=== PATIENT | female | born 1995 | race Hispanic/Latino ===

== ENCOUNTER 2025-02-04 05:26 | Emergency (ER) | payer OTHER, SELFPAY ==
[2025-02-04 05:39] VITALS: BP 122/80
[2025-02-04 05:43] VITALS: BMI 41.5
--- NOTE | 2025-02-04 06:23 | ED.GENMED ---
History of Present Illness
General
Chief Complaint: Headache
Source: patient
Time Seen by Provider: 02/04/25 06:05
History of Present Illness
History of Present Illness:
29-year-old female complaining of bifrontal headache with nausea. No other neurologic symptoms. No double vision photophobia fever rash. Long history of migraines for years. Typically gets them about once a month. Usually takes Imitrex with
resolution. Patient is 14 weeks and did not take Imitrex for this reason. She last took Tylenol yesterday
Past History
Past History
ED Past Medical History: Other (Migraine)
ED Past Surgical History: and Other ([place] teeth)
Review of Systems
Review of Systems
All Other Systems: Not applicable
Phy Exam
Physical Exam
Physical Exam:
GENERAL: Alert and oriented in no apparent distress
EYE: Orbits normal. Discharge. Extraocular muscles intact
NECK: Supple, no significant adenopathy.
CARDIAC: Regular rate and rhythm without any obvious murmurs.
LUNGS: Clear breath sounds,normal
ABDOMEN: Soft, without focal tenderness or distention
NEUROLOGICAL: Alert and oriented , grossly non-focal. Speech normal. [id number] normal. Motor Expert normal.
SKIN: Warm and dry, no rash or lesion, no discoloration, skin intact.
MUSCULOSKELETAL: No edema,no deformity.Good color
PSYCH: Normal and appropriate interaction.
Course
Orders/Labs/Results
Orders:
Orders
02/04/25 06:15
IV Insert/Care/Rem.- Treatment PRN
0.9% Sodium Chloride 1000 ml [Nss] 1,000 ml IV BOLUS
02/04/25 06:27
Complete Blood Count/With Diff Urgent
Comprehensive Metabolic Panel Urgent
02/04/25 06:28
Urinalysis Reflex To Culture Urgent
Date Specimen was Collected: 02/04/25
Time Specimen was Collected: 06:27
Urine Microscopic Reflex Cult Urgent
Urine Culture Urgent
OCTAVIA Source: U
Specimen Description:
Date Specimen was Collected: 02/04/25
Time Specimen was Collected:
Acetaminophen 1000MG/100Ml [Ofirmev] 1,000 mg in 100 ml IV ONCE
Acetaminophen IV Indication:: ED Narcotic Naive Pt-ONCE
Diphenhydramine [Benadryl] 25 mg IV NOW STA
Metoclopramide [Reglan] 10 mg IV NOW STA
Abnormal Lab Results
02/04/25 02/04/25
06:28
RBC 4.07 L 10^6/uL
(4.20-5.40)
Hgb 11.9 L g/dL
(12.0-16.0)
Hct 34.7 L %
(37.0-47.0)
Abs Immat Gran (auto) 0.1 H 10^3/uL
(0-0.05)
Immature Gran % 0.7 H %
(0-0.5)
Chloride 110 H mmol/L
(98-107)
Creatinine 0.5 L mg/dL
(0.6-1.0)
Glucose 106 H mg/dl
(70-99)
Leukocyte Esterase Rfl 2+ A
(Negative)
Urine WBC (Reflex) 11-15 A /HPF
(0-5)
Urine Bacteria (Reflex) Moderate A
(Negative)
02/04/25 06:27
02/04/25 06:27
Vital Signs
Initial and Last Documented VS:
Initial Vital Signs
Temp Pulse Resp BP Pulse Ox
98.2 F 87 20 122/80 99
02/04/25 05:39 02/04/25 05:39 02/04/25 05:39 02/04/25 05:39 02/04/25 05:39
Last Documented Vital Signs
Temp Pulse Resp BP Pulse Ox
98.2 F 73 16 99/62 98
02/04/25 05:39 02/04/25 07:54 02/04/25 07:54 02/04/25 08:05 02/04/25 07:54
MDM/Problems Addressed
Differential Diagnosis Includes:
29-year-old female bifrontal headache. Consistent with her migraine. Feels like her migraine. Long history of migraines. Only difference from her typical migraine is time course as this is lasted longer. However she would normally have taken
Imitrex. Because of her she was reluctant. She denies visual issues neurologic issues or other complaints. Clinically and based on history this is migraine. Do not feel this warrants radiologic testing. She is 14 weeks . Do
not feel this is a preeclamptic issue. Will check labs and urine however. Reviewed with [facility] as far as management. Will give Reglan Benadryl and Tylenol.
*Pulse Oximetry
SaO2: 98
Oxygen Mode of Delivery: Room air
Patient hypoxic: no
*Critical Care Note
Total Time (30-74mins, 75-104mins- exclusive of procedures): Not Applicable
Update Note
Update Note:
0740... Patient doing well. Much improved. Labs stable. No protein in the urine. Contaminated urine but no UTI symptoms. Discharged to follow-up.
ED Attending Note
-
Portions of this chart may have been created with voice recognition software.� Occasional wrong word or��sound alike� substitutions may have occurred due to the inherent limitations of voice recognition software.
Discharge Plan
Departure
Patient Disposition: Home (Routine Discharge)
Date of Disposition: 02/04/25
Time of Disposition: 07:38
Patient with high blood pressure during this ER visit?: Yes
Discharge Problem:
Headache, 14-week
Instructions: Headache, Adult (DC), BLOOD PRESSURE
Prescriptions:
No Action
1 tab PO DAILY
Referrals:
UNKNOWN - PT DOES,NOT KNOW [Family Provider]
Activity Restrictions/Additional Instructions:
Follow-up with your primary physician and [facility]
Tylenol would be the safest for the headache
Return with any change in headache vomiting fever neurologic symptoms or any other concerning symptoms
Interventions
Interventions:
*Risk Screen - Suicide Last Done: 02/04/25 05:39
*General Assessment Last Done: 02/04/25 05:39
*Neglect/Abuse Screening Last Done: 02/04/25 05:39
*ED COVID-19 Vaccine History Last Done: 02/04/25 05:39
*Nursing Disposition Last Done: 02/04/25 08:30
ED- Neurological Assessment Last Done: 02/04/25 07:53
Discharge Date and Time
Discharge Date/Time: 02/04/25 08:30
Print Language: CAMEROONIAN
[2025-02-04] MEDS: BENADRYL 25 MG IV (06:37)
[2025-02-04] MEDS: NSS 1000 IV (06:37)
[2025-02-04] MEDS: REGLAN 10 MG IV (06:38)
[2025-02-04] MEDS: OFIRMEV 100 IV (06:44)
[2025-02-04 06:45] LABS: % Basophils 0.3 % (0-2); % Eosinophils 1.1 % (0-6); % Immature Granulocytes 0.7 % (0-0.5); % Lymphocytes 28.5 % (20.5-51.1); % Monocytes 5.2 % (1.7-9.3); % Neutrophils 64.2 % (42.2-75.2); Absolute Eosinophils 0.1 10^3/uL (0-0.7); Absolute Immature Granulocytes 0.1 10^3/uL (0-0.05); Absolute Lymphocytes 2.1 10^3/uL (1.2-3.4); Absolute Monocytes 0.4 10^3/uL (0.1-0.6); Absolute Neutrophils 4.7 10^3/uL (1.4-6.5); Hematocrit 34.7 % (37.0-47.0); Hemoglobin 11.9 g/dL (12.0-16.0); Mean Corp Hgb Conc. 34.3 g/dL (33.0-37.0); Mean Corpuscular Hgb 29.2 pg (27.0-31.0); Mean Corpuscular Volume 85.3 fL (81.0-99.0); Mean Platelet Volume 9.2 fL (7.4-10.4); Nucleated Red Blood Cells % 0 %; Platelet Count 210 10^3/uL (130-400); Red Blood Cell Count 4.07 10^6/uL (4.20-5.40); Red Cell Dist. Width 13.7 % (11.5-14.5); White Blood Cell Count 7.3 10^3/uL (4.8-10.8)
[2025-02-04 06:47] LABS: Urine Albumin Negative (Neg - Trace); Urine Bilirubin Negative (Negative); Urine Character Clear (Clear); Urine Color Yellow; Urine Glucose Negative (Negative); Urine Ketone Negative (Negative); Urine Leukocyte 2+ (Negative); Urine Nitrite Negative (Negative); Urine Occult Blood Negative (Negative); Urine Urobilinogen Negative (Neg - 1+)
[2025-02-04 06:55] LABS: Urine Squamous Cell >30 /LPF (Few)
[2025-02-04 06:56] LABS: Urine Bacteria Moderate (Negative); Urine Red Blood Cell None Seen /HPF (0-2)
[2025-02-04 07:10] LABS: ALT (SGPT) 16 U/L (0-35); AST (SGOT) 16 U/L (14-36); Albumin 3.5 g/dl (3.5-5.0); Alkaline Phosphatase 72 U/L (38-126); Blood Urea Nitrogen 9 mg/dl (7-17); Calcium 9.1 mg/dl (8.4-10.2); Carbon Dioxide 22 mmol/L (22-30); Chloride 110 mmol/L (98-107); Estimated Creatinine Clearance > 125 ml/min; Glucose 106 mg/dl (70-99); Potassium 3.9 mmol/L (3.5-5.1); Sodium 139 mmol/L (135-145); Total Bilirubin 0.4 mg/dl (0.2-1.3); Total Protein 6.5 g/dl (6.3-8.2); eGFR > 60.00
[2025-02-04 08:05] VITALS: BP 99/62
== END 2025-02-04 08:30 | disposition home or self-care (01) ==
LOC: EMR 05:26
PROVIDERS: EMERGENCY PHYSICIAN Emergency Medicine
DX: O99.352 Diseases of the nervous system complicating pregnancy, second trimester (principal); G43.909 Migraine, unspecified, not intractable, without status migrainosus; Z3A.14 14 weeks gestation of pregnancy
CPT/HCPCS: 96374; 96375; 99284; 80053; 81003; 81015; 85025; 87086

== ENCOUNTER 2025-03-06 22:10 | Emergency (ER) | payer OTHER, SELFPAY ==
[2025-03-06 22:18] VITALS: BP 118/88
--- NOTE | 2025-03-06 22:56 | ED.GENMED ---
History of Present Illness
General
Chief Complaint: Chest Pain
Source: patient
Time Seen by Provider: 03/06/25 22:48
History of Present Illness
History of Present Illness:
29-year-old female presents to the emergency room complaining of chest pain. Patient states she began having chest pain few hours ago while she was sitting. Pain radiates to her back. She states she does feel bit short of breath. Patient is 19
weeks . Discomfort also associated with some nausea and vomiting. No fever or chills. Patient denies any recent travel.
Past History
Past History
ED Past Medical History: Other (Migraine)
ED Past Surgical History: and Other ([place] teeth)
Phy Exam
Physical Exam
Physical Exam:
General: Awake, Alert, Oriented X3. No acute distress.
Vitals: unremarkable
Head: Atraumatic
Eyes: Pupils equal, EOMI
Throat: Airway intact, no exudates
Neck: Trachea midline
Lungs: Clear and equal b/l
Heart: Regular rate, no murmurs
Abd: Soft, Nontender, No pulsatile mass
Neuro: Nonfocal
Skin: Warm, dry, no rash
Extremities: pulses equal b/l, no edema
Scores
Heart Score for Chest Pain Patients
STEMI patient?: Not applicable
Course
Orders/Labs/Results
Orders:
Orders
03/06/25 22:17
Electrocardiogram (*1) Urgent
Reason for Study: Chest Pain
EKG- Treatment ONCE
03/06/25 22:55
Cardiac Monitoring- Treatment ONCE
Mag Hydrox/Al Hydrox/Simeth [Maalox] 30 ml Phenobarb/Hyoscy/Atropine/Scop [] 10 ml Viscous Lidocaine 2% [Xylocaine Viscous Cup] 10 ml PO NOW
03/06/25 23:01
Mag Hydrox/Al Hydrox/Simeth [Maalox] 30 ml .ROUTE .STK-MED ONE
Phenobarb/Hyoscy/Atropine/Scop [] 10 ml .ROUTE .STK-MED ONE
03/06/25 23:02
Viscous Lidocaine 2% [Xylocaine Viscous Cup] 15 ml .ROUTE .STK-MED ONE
03/06/25 23:12
Complete Blood Count/With Diff Urgent
Comprehensive Metabolic Panel Urgent
D-Dimer Urgent
Magnesium Urgent
Troponin I Urgent
Abnormal Lab Results
03/06/25
23:12
RBC 3.71 L 10^6/uL
(4.20-5.40)
Hgb 10.9 L g/dL
(12.0-16.0)
Hct 31.8 L %
(37.0-47.0)
Abs Immat Gran (auto) 0.1 H 10^3/uL
(0-0.05)
Absolute Neuts (auto) 6.7 H 10^3/uL
(1.4-6.5)
Immature Gran % 0.6 H %
(0-0.5)
Creatinine 0.4 L mg/dL
(0.6-1.0)
Glucose 100 H mg/dl
(70-99)
03/06/25 23:12
03/06/25 23:12
Vital Signs
Initial and Last Documented VS:
Initial Vital Signs
Temp Pulse Resp BP Pulse Ox
97.4 F 83 16 118/88 99
03/06/25 22:18 03/06/25 22:18 03/06/25 22:18 03/06/25 22:18 03/06/25 22:18
Last Documented Vital Signs
Temp Pulse Resp BP Pulse Ox
97.4 F 83 16 118/88 99
03/06/25 22:18 03/06/25 22:18 03/06/25 22:18 03/06/25 22:18 03/06/25 22:58
MDM/Problems Addressed
Differential Diagnosis Includes:
PE, GERD, acute coronary syndrome, esophageal spasm, cholecystitis
MDM/Problems Addressed:
Patient presents with chest pain that rating to her back. Vital signs are normal. She is not particular short of breath. D-dimer is normal. EKG shows no acute ischemic changes and is not tachycardic. Patient feels better after GI cocktail. She
has no tenderness to palpation in the right upper quadrant or epigastrium. My suspicion for acute coronary syndrome is low given her age, normal EKG and normal troponin. A normal D-dimer I think is sufficient to rule out PE as she is not
tachycardic, is not having a pleuritic nature to her pain and is not feeling short of breath. I think most likely diagnosis is GERD. She felt better after GI cocktail. Recommend follow-up with her primary care provider as an outpatient. Return
for any concerns.
*Pulse Oximetry
SaO2: 99
Oxygen Mode of Delivery: Room air
Patient hypoxic: no
*EKG
Interpreted by ED Provider?: Yes
Heart Rate: 83
Rate: normal
Rhythm: sinus
[place]: normal axis
Interval: normal interval
QRS Pattern: normal QRS
Ischemia: no ischemia
*Instructor Bridge Interpretation
Rate: normal
Interpretation: normal
Heart Rate: 83
Rhythm: sinus
*Critical Care Note
Total Time (30-74mins, 75-104mins- exclusive of procedures): Not Applicable
ED Attending Note
-
Portions of this chart may have been created with voice recognition software.� Occasional wrong word or��sound alike� substitutions may have occurred due to the inherent limitations of voice recognition software.
Discharge Plan
Departure
Patient Disposition: Home (Routine Discharge)
Date of Disposition: 03/07/25
Time of Disposition: 01:06
Patient with high blood pressure during this ER visit?: No
Condition: Good
Discharge Problem:
Chest pain, Chest pain due to GERD
Instructions: Acid Reflux and GERD in Adults (DC)
Prescriptions:
New
ondansetron 4 mg tablet,disintegrating
4 mg PO Q8H PRN (Reason: nausea and vomiting) 3 Days Qty: 9 0RF
No Action
1 tab PO DAILY
Referrals:
Marlen Mast CRNP [Family Provider]
Interventions
Interventions:
*Risk Screen - Suicide Last Done: 03/06/25 22:18
*General Assessment Last Done: 03/06/25 22:18
*Neglect/Abuse Screening Last Done: 03/06/25 22:18
*ED- Fall Risk Assessment Last Done: 03/06/25 22:18
*ED COVID-19 Vaccine History Last Done: 03/06/25 22:18
*Nursing Disposition Last Done: 03/07/25 01:16
ED- Cardiac Assessment Last Done: 03/06/25 23:34
Discharge Date and Time
Discharge Date/Time: 03/07/25 01:16
Print Language: [place]IZ[place]
[2025-03-06] MEDS: MAALOX 50 PO (23:03)
[2025-03-06 23:20] LABS: Hematocrit 31.8 % (37.0-47.0); Hemoglobin 10.9 g/dL (12.0-16.0); Mean Corp Hgb Conc. 34.3 g/dL (33.0-37.0); Mean Corpuscular Volume 85.7 fL (81.0-99.0); Nucleated Red Blood Cells % 0 %; Platelet Count 207 10^3/uL (130-400); Red Cell Dist. Width 13.9 % (11.5-14.5)
[2025-03-06 23:33] LABS: D-Dimer 0.30 ug/mlFEU (0.00-0.50)
[2025-03-06 23:38] LABS: ALT (SGPT) 14 U/L (0-35); AST (SGOT) 15 U/L (14-36); Albumin 3.5 g/dl (3.5-5.0); Alkaline Phosphatase 76 U/L (38-126); Blood Urea Nitrogen 9 mg/dl (7-17); Calcium 9.3 mg/dl (8.4-10.2); Carbon Dioxide 24 mmol/L (22-30); Chloride 106 mmol/L (98-107); Glucose 100 mg/dl (70-99); Magnesium 1.9 mg/dl (1.6-2.3); Potassium 3.9 mmol/L (3.5-5.1); Sodium 135 mmol/L (135-145); Total Protein 6.4 g/dl (6.3-8.2); eGFR > 60.00
[2025-03-06 23:44] LABS: Troponin I < 0.012 ng/ml
== END 2025-03-07 01:16 | disposition home or self-care (01) ==
LOC: EMR 22:10
PROVIDERS: EMERGENCY PHYSICIAN Emergency Medicine; FAMILY PHYSICIAN Nurse Practitioner Family
DX: O99.891 Other specified diseases and conditions complicating pregnancy (principal); R07.89 Other chest pain; K21.9 Gastro-esophageal reflux disease without esophagitis; Z3A.19 19 weeks gestation of pregnancy
CPT/HCPCS: 99283; 80053; 83735; 84484; 85025; 85379; 93005